=== PATIENT | male | born 1980 | race Caucasian/White ===

== ENCOUNTER 2017-01-19 05:43 | Observation (INO) | payer OTHER ==
--- NOTE | ~2017-01-19 | OP ---
Record Of Operation [facility] [address] [place]. [address] NAME: MAYTE APPIAH : 82 STATUS : DIS Elvia PAT#: [id number] AGE: 36 ADM/REG DATE : 01/19/17 MR#: [id number] REPORT SERV DATE: 01/22/17 DICTATED BY: TITO MENDIETA II DATE: 01/22/17 REPORT STATUS : Draft TRANSCRIBED BY: MODMeño DATE: 01/22/17 DATE OF PROCEDURE: 01/19/2017 PREOPERATIVE DIAGNOSES: 1. Left upper extremity radiculopathy. 2. C5-6, C6-7 degenerative disk disease with stenosis. POSTOPERATIVE DIAGNOSES: 1. Left upper extremity radiculopathy. 2. C5-6, C6-7 degenerative disk disease with stenosis. PROCEDURES: 1. C5-6, C6-7 total disk replacement. 2. Use of the microscope. SURGEON: Tito Mendieta M.D. FLUIDS: One liter of lactated Ringer's. ESTIMATED BLOOD LOSS: 20 mL. DRAINS: One drain. COMPLICATIONS: None. IMPLANTS: Mobi-C. PREOPERATIVE HISTORY: This is a very friendly 36-year-old gentleman who works at [employer] who reports a history of neck pain radiating into his left upper extremity. The pain radiates into the left periscapular region and into the arm and dorsal aspect of the forearm. We discussed the pros and cons of continuing nonoperative care versus surgery. We discussed the rates of success versus failure of total disk replacement as well as fusion. I felt he was a reasonable candidate for either. We discussed the risks of difficulty swallowing, vocal cord paralysis, and a small chance of stroke and . DESCRIPTION OF PROCEDURE: After informed consent was obtained, the patient was brought to the operating room at his request and general anesthesia achieved. He was placed in the supine position and the neck was prepped and draped in a sterile fashion. The right-sided retropharyngeal approach was performed following skin incision. The subperiosteal exposure was completed following radiographic confirmation of the appropriate level. The belt glass sander retractors were placed underneath the longus colli muscles followed by deflation and reinflation of the ET tube cuff. The [place] pins were placed followed by use of the microscope. Under microscopic visualization, the C6-7 level was treated with diskectomy. The disk was removed with the pituitary rongeurs, Kerrison rongeurs, and the curettes. The endplates Record Of [facility] [address] [place]. [address] NAME: MAYTE APPIAH : 82 STATUS : DIS Elvia PAT#: [id number] AGE: 36 ADM/REG DATE : 01/19/17 MR#: [id number] REPORT SERV DATE: 01/22/17 DICTATED BY: TITO MENDIETA II DATE: 01/22/17 REPORT STATUS : Draft TRANSCRIBED BY: AMRITA DATE: 01/22/17 were denuded of their cartilage followed by use of the high-speed lien to remove the posterior lateral osteophytes. The C7 endplate was made to be an essentially parallel. The C6 inferior endplate was treated with the curettes, but the concavity maintained. Subchondral bone was not violated in the central portion of the endplate. Next, the posterior lateral osteophytes were further removed with the Kerrison rongeurs. The posterior longitudinal ligament was now removed and the canal and foramen well decompressed. Next, under lateral fluoroscopy, the C6-7 space was trialed. The appropriate size total disk replacement was now determined and assembled on the back table. The total disk replacement was now placed under fluoroscopic assistance. Excellent fit was obtained. Next, the C5-6 level was addressed in a similar manner with diskectomy and endplate preparation with the curettes primarily. The posterolateral osteophytes were now removed with the Kerrison rongeurs and the high-speed lien. The posterior vertebral body osteophytes were further removed with the Kerrison rongeurs including removal of the posterior longitudinal ligament. The compression was now alleviated and the nerve roots now found to be free. Next, the artificial disk replacement was now trialed and the appropriate size chosen and placed. Multiplanar imaging confirmed acceptable placement of the implants. The implants were placed also please note the following hemostasis confirmation. Next, the deep drain was placed secondary to some extremely mild cancellous bleeding along the anterior aspect, but overall was done more prophylactically to help prevent seroma. Following skin closure, dressings were applied. The patient was extubated and transferred to PACU in stable condition. VINI/AMRITA Tito Mendieta II, M.D. / [id number] CC: Tito Mendieta II, M.D.
[~2017-01-19 05:43] MED LIST: ADDERXR30 PO; LYRICA75 PO; NEUR300 PO; NORCO1 TA1 PO; TURMERIC
[2017-01-20] MEDS ORDERED: V5 PO (10:39)
[2017-01-20] MEDS ORDERED: MSCONT15 PO (10:40)
[2017-01-20] MEDS ORDERED: OXYCOD PO (10:40)
== END 2017-01-20 14:00 | disposition home or self-care (01) ==
LOC: SDC 05:43 → 3SO 12:39
PROVIDERS: Orthopaedic Surgery
PROC: 0RR30JZ Replacement of Cervical Vertebral Disc with Synthetic Substitute, Open Approach (ICD-10-PCS; principal; 2017-01-19 07:00)
DX: M50.122 Cervical disc disorder at C5-C6 level with radiculopathy (principal); M50.123 Cervical disc disorder at C6-C7 level with radiculopathy; M48.02 Spinal stenosis, cervical region; F90.9 Attention-deficit hyperactivity disorder, unspecified type; Z79.891 Long term (current) use of opiate analgesic; Z79.899 Other long term (current) drug therapy; Z87.891 Personal history of nicotine dependence; Z98.890 Other specified postprocedural states
CPT/HCPCS: 87641; 88304; 88311; 96374; 96375; 96376; A9270-GY; G0378; J0690; J1170; J2250; J2270; J2370; J2405; J2710; J3010; J3370